=== PATIENT | male | born 1975 | race Hispanic/Latino ===

== ENCOUNTER 2021-03-29 13:48 | Emergency (ER) | payer MEDICARE, OTHER ==
[~2021-03-29] VITALS: Ht 172.7 cm; Wt 149.7 kg
[~2021-03-29 13:48] MED LIST: ATOR40TA69 PO; FENO145T PO; PANT40TA PO
[2021-03-29 13:55] VITALS: BP 171/93
== END 2021-03-29 16:17 | disposition home or self-care (01) ==
LOC: EDH 13:48
DX: J95.03 Malfunction of tracheostomy stoma (principal); Z79.899 Other long term (current) drug therapy
CPT/HCPCS: 99281

== ENCOUNTER 2021-04-25 15:36 | Emergency (ER) | payer OTHER ==
[~2021-04-25] VITALS: Ht 172.7 cm; Wt 145.1 kg
[2021-04-25 15:37] VITALS: BP 169/111
[2021-04-25 16:49] VITALS: BP 143/69
[2021-04-25 18:06] VITALS: BP 142/78
== END 2021-04-25 17:24 | disposition short-term general hospital (02) ==
LOC: EDH 15:36
DX: Z43.0 Encounter for attention to tracheostomy (principal); E11.9 Type 2 diabetes mellitus without complications; Z79.899 Other long term (current) drug therapy
CPT/HCPCS: 31502

== ENCOUNTER 2023-10-06 11:32 | Emergency (ER) | payer OTHER ==
[~2023-10-06] VITALS: Ht 172.7 cm; Wt 131.1 kg
[2023-10-06] MEDS ORDERED: CLONIDINE HCL 0.1 MG TABLET ONE (14:57)
[2023-10-06] MEDS ORDERED: CLONIDINE HCL 0.1 MG TABLET PO ONE (15:00)
[2023-10-06 15:44] VITALS: BP 164/98; PULSE 76; RESP 18; O2SAT 99
== END 2023-10-06 15:44 | disposition home or self-care (01) ==
LOC: EDH 11:32
DX: Z43.0 Encounter for attention to tracheostomy (principal); E11.9 Type 2 diabetes mellitus without complications; Z79.899 Other long term (current) drug therapy
CPT/HCPCS: 31502